=== PATIENT | male | born 1955 | race Caucasian/White ===

== ENCOUNTER 2017-10-03 12:50 | Emergency (ER) | payer BC ==
[2017-10-03 13:12] VITALS: BP 171/78
[2017-10-03] MEDS ORDERED: Sodium Chloride 0.9% 10 ML Syringe FLUSH PRN (13:27)
[2017-10-03] MEDS ORDERED: Ondansetron 4 MG/2 ML SDV IVPUSH ONE ×2 (13:27→15:03)
[2017-10-03] MEDS ORDERED: Morphine 10 MG/ML Syringe IVPUSH ONE (13:30)
[2017-10-03] MEDS ORDERED: Sodium Chloride 0.9% 1,000 ML IV SCH (13:30)
[2017-10-03] MEDS ORDERED: Diatrizoate Meglumine/Diatrizoate Sodium 37% 120 ML Bottle PO ONE (15:34)
[2017-10-03] MEDS ORDERED: Sodium Chloride 0.9% 10 ML Syringe FLUSH ONE (15:34)
[2017-10-03] MEDS ORDERED: Iopamidol 755 Mg/ML 100 ML Bottle IVPUSH ONE (15:34)
--- NOTE | 2017-10-03 15:42 | EDM.PDOC ---
ED HPI GENERAL MEDICAL PROBLEM - General Chief Complaint: Abdominal Pain Stated Complaint: LOWER ABDOMINAL PAIN Time Seen by Provider: 10/03/17 13:04 Source of Information: Reports: Patient, RN Notes Reviewed - History of Present Illness INITIAL COMMENTS - FREE TEXT/NARRATIVE: 61 year old male comes in with RLQ abd pain that started about 3 to 4 hrs ago, has had some nausea and dry heaves, the pain did come first, no radiation to back, he did have some similar discomfort 2 days ago that lasted only for a couple of hours. Hx diverticulitis. No major pain L abd, no fever, chills or diarrhea. No chest pain or difficulty breathing. 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 (see below) Other Treatments MINING TEACHER: none Right Lower Abdomen Pain Score (Numeric/FACES): 9 - Related Data Allergies Allergy/AdvReac Type Severity Reaction Status Date / Time No Known Allergies Allergy Verified 10/27/13 19:22 Home Meds: Home Meds Allopurinol [Zyloprim] 100 mg PO QAM 10/27/13 [History] Aspirin [Halfprin] 81 mg PO DAILY 10/27/13 [History] Fenofibrate Nanocrystallized [Tricor] 145 mg PO DAILY 10/27/13 [History] Levothyroxine [Synthroid] 50 mcg PO QAM 10/27/13 [History] Losartan [Cozaar] 50 mg PO DAILY 10/27/13 [History] Metoprolol Tartrate [Lopressor] 25 mg PO BID 10/27/13 [History] Mometasone Furoate [Nasonex [place]] 2 spray FRANCO QPM 10/27/13 [History] Niacin [Niacin ER] 1,000 mg PO DAILY 10/27/13 [History] [place]-3 Fatty Acids [[place]-3] 2,000 mg PO BID 10/27/13 [History] Omeprazole 20 mg PO BIDAC 10/27/13 [History] Simvastatin [Zocor] 20 mg PO DAILY 10/27/13 [History] L Gasseri/B Bifidum/B Longum [MoralesWiFast Colon Health Capsule] 1 tab PO DAILY 05/13 [History] Ondansetron [Zofran ODT] 4 mg PO Q6H PRN #10 tab.dis 10/03/17 [Rx] Tamsulosin [Tamsulosin 24 Hr] 0.4 mg PO DAILY #7 cap.er 10/03/17 [Rx] oxyCODONE HCl/Acetaminophen [Percocet 5-325 mg Tablet] 1 each PO Q6HR PRN #20 tablet 10/03/17 [Rx] Past Medical History Cardiovascular History: Reports: High Cholesterol, Hypertension Respiratory History: Reports: Other (See Below) Other Respiratory History: c-pap at night Gastrointestinal History: Reports: Diverticulosis, GERD, Hemorrhoids Musculoskeletal History: Reports: Gout Endocrine/Metabolic History: Reports: Hypothyroidism, Other (See Below) Other Endocrine/Metabolic History: pre diabetic - Past Surgical History GI Surgical History: Reports: Colonoscopy, EGD, Hernia, Abdominal, Other (See Below) Other GI Surgeries/Procedures: fatty liver Social & Family History - Tobacco Use Smoking Status *Q: Never Smoker - Caffeine Use Caffeine Use: Reports: Soda Other Caffeine Use: diet pepsi - Recreational Drug Use Recreational Drug Use: No ED ROS GENERAL - Review of Systems Review Of Systems: See Below Constitutional: Denies: Fever, Chills HEENT: Denies: Throat Pain Respiratory: Denies: Shortness of Breath, Wheezing, Pleuritic Chest Pain Cardiovascular: Denies: Chest Pain GI/Abdominal: Reports: Abdominal Pain, Nausea, Vomiting. Denies: Diarrhea, Hematochezia, Melena Musculoskeletal: Reports: No Symptoms. Denies: Back Pain Skin: Reports: No Symptoms Neurological: Reports: No Symptoms ED EXAM, GI/ABD - Physical Exam Exam: See Below General Appearance: Alert, Moderate Distress Throat/Mouth: Normal Inspection, Normal Oropharynx Head: Atraumatic. No: Facial Swelling Neck: Supple, Full Range of Motion Respiratory/Chest: No Respiratory Distress, Lungs Clear, Normal Breath Sounds Cardiovascular: Regular Rate, Rhythm, Bradycardia GI/Abdominal Exam: Soft, Tender (RLQ). No: Guarding, Rebound Back Exam: No: CVA Tenderness (L), CVA Tenderness (R) Extremities: Normal Inspection, Normal Range of Motion. No: Leg Pain Neurological: Alert, No Motor/Sensory Deficits Skin Exam: Warm, Dry, Normal Color Course - Vital Signs Last Recorded V/S: Last Vital Signs Temp 97.8 F 10/03/17 13:10 Pulse 55 L 10/03/17 13:10 Resp 20 10/03/17 13:10 BP 171/78 H 10/03/17 13:10 Pulse Ox 94 L 10/03/17 13:10 - Orders/Labs/Meds Orders: Active Orders 24 hr Category Date Time Status Peripheral IV Care [RC] . DIRECTED Care 10/03/17 13:27 Active Abdomen 2V AP Flat Upright [CR] Stat Exams 10/03/17 13:26 Taken Abdomen Pelvis wo Cont [CT] Stat Exams 10/03/17 15:41 Taken Sodium Chloride 0.9% [Normal Saline] 1,000 ml Med 10/03/17 13:30 Active IV ONETIME Sodium Chloride 0.9% [Normal Saline] 100 ml Med 10/03/17 15:45 Active IV ASDIRECTED Sodium Chloride 0.9% [Saline Flush] Med 10/03/17 13:27 Active 10 ml FLUSH ASDIRECTED PRN Peripheral IV Insertion Adult [OM.PC] Stat Oth 10/03/17 13:27 Ordered Medication Orders Sodium Chloride (Normal Saline) 1,000 mls @ 999 mls/hr IV ONETIME ED Last Admin: 10/03/17 13:37 Dose: 999 mls/hr Sodium Chloride (Normal Saline) 100 mls @ 60 mls/hr IV ASDIRECTED ED Sodium Chloride (Saline Flush) 10 ml FLUSH ASDIRECTED PRN PRN Reason: Keep Vein Open Last Admin: 10/03/17 13:37 Dose: 10 ml Labs: Laboratory Tests 10/03/17 10/03/17 10/03/17 Range/Units 13:25 13:25 13:25 WBC 12.66 H (4.23-9.07) K/mm3 RBC 5.32 (4.63-6.08) M/mm3 Hgb 15.5 (13.7-17.5) gm/L Hct 46.7 (40.1-51.0) % MCV 87.8 (79.0-92.2) fl MCH 29.1 (25.7-32.2) pg MCHC 33.2 (32.2-35.5) g/dl RDW Std Deviation 41.1 (35.1-43.9) fL Plt Count 256 (163-337) K/mm3 MPV 10.0 (9.4-12.3) fl Neut % (Auto) 79.5 H (34.0-67.9) % Lymph % (Auto) 11.4 L (21.8-53.1) % [place] % (Auto) 7.5 (5.3-12.2) % Eos % (Auto) 0.7 L (0.8-7.0) Baso % (Auto) 0.3 (0.1-1.2) % Neut # (Auto) 10.07 H (1.78-5.38) K/mm3 Lymph # (Auto) 1.44 (1.32-3.57) K/mm3 [place] # (Auto) 0.95 H (0.30-0.82) K/mm3 Eos # (Auto) 0.09 (0.04-0.54) K/mm3 Baso # (Auto) 0.04 (0.01-0.08) K/mm3 Sodium 142 (136-145) mEq/L Potassium 4.1 (3.5-5.1) mEq/L Chloride 106 (98-107) mEq/L Carbon Dioxide 30 (21-32) mEq/L Anion Gap 10.1 (5-15) BUN 24 H (7-18) mg/dL Creatinine 1.4 H (0.7-1.3) mg/dL Est Cr Clr Drug Dosing 54.29 mL/min Estimated GFR (MDRD) 52 (>60) mL/min BUN/Creatinine Ratio 17.1 (14-18) Glucose 116 H (74-106) mg/dL Calcium 9.7 (8.5-10.1) mg/dL Total Bilirubin 0.6 (0.2-1.0) mg/dL AST 27 (15-37) U/L ALT 47 (16-63) U/L Alkaline Phosphatase 57 (46-116) U/L C-Reactive Protein < 0.2 (<1.0) mg/dL Total Protein 7.4 (6.4-8.2) g/dl Albumin 3.9 (3.4-5.0) g/dl Globulin 3.5 gm/dL Albumin/Globulin Ratio 1.1 (1-2) Urine Color (Yellow) Urine Appearance (Clear) Urine pH (5.0-8.0) Ur Specific [place] (1.005-1.030) Urine Protein (Negative) Urine Glucose (UA) (Negative) Urine Ketones (Negative) Urine Occult Blood (Negative) Urine Nitrite (Negative) Urine Bilirubin (Negative) Urine Urobilinogen (0.2-1.0) Ur Leukocyte Esterase (Negative) Urine RBC (0-5) /hpf Urine WBC (0-5) /hpf Ur Epithelial Cells (0-5) /hpf Urine Bacteria (FEW) /hpf Urine Mucus (FEW) /hpf 10/03/17 Range/Units 14:55 WBC (4.23-9.07) K/mm3 RBC (4.63-6.08) M/mm3 Hgb (13.7-17.5) gm/L Hct (40.1-51.0) % MCV (79.0-92.2) fl MCH (25.7-32.2) pg MCHC (32.2-35.5) g/dl RDW Std Deviation (35.1-43.9) fL Plt Count (163-337) K/mm3 MPV (9.4-12.3) fl Neut % (Auto) (34.0-67.9) % Lymph % (Auto) (21.8-53.1) % [place] % (Auto) (5.3-12.2) % Eos % (Auto) (0.8-7.0) Baso % (Auto) (0.1-1.2) % Neut # (Auto) (1.78-5.38) K/mm3 Lymph # (Auto) (1.32-3.57) K/mm3 [place] # (Auto) (0.30-0.82) K/mm3 Eos # (Auto) (0.04-0.54) K/mm3 Baso # (Auto) (0.01-0.08) K/mm3 Sodium (136-145) mEq/L Potassium (3.5-5.1) mEq/L Chloride (98-107) mEq/L Carbon Dioxide (21-32) mEq/L Anion Gap (5-15) BUN (7-18) mg/dL Creatinine (0.7-1.3) mg/dL Est Cr Clr Drug Dosing mL/min Estimated GFR (MDRD) (>60) mL/min BUN/Creatinine Ratio (14-18) Glucose (74-106) mg/dL Calcium (8.5-10.1) mg/dL Total Bilirubin (0.2-1.0) mg/dL AST (15-37) U/L ALT (16-63) U/L Alkaline Phosphatase (46-116) U/L C-Reactive Protein (<1.0) mg/dL Total Protein (6.4-8.2) g/dl Albumin (3.4-5.0) g/dl Globulin gm/dL Albumin/Globulin Ratio (1-2) Urine Color Dark yellow (Yellow) Urine Appearance Slt cloudy H (Clear) Urine pH 6.5 (5.0-8.0) Ur Specific [place] 1.020 (1.005-1.030) Urine Protein Trace H (Negative) Urine Glucose (UA) Negative (Negative) Urine Ketones Negative (Negative) Urine Occult Blood 3+ H (Negative) Urine Nitrite Negative (Negative) Urine Bilirubin Negative (Negative) Urine Urobilinogen 0.2 (0.2-1.0) Ur Leukocyte Esterase Negative (Negative) Urine RBC 50-75 H (0-5) /hpf Urine WBC 0-5 (0-5) /hpf Ur Epithelial Cells 0-5 (0-5) /hpf Urine Bacteria Few (FEW) /hpf Urine Mucus Few (FEW) /hpf Meds: Medications Generic Name Dose Route Start Last Admin Trade Name Freq PRN Reason Stop Dose Admin Sodium Chloride 1,000 mls @ 999 mls/hr 10/03/17 13:30 10/03/17 13:37 Normal Saline IV 999 mls/hr ONETIME ED Administration Sodium Chloride 100 mls @ 60 mls/hr 10/03/17 15:45 Normal Saline IV ASDIRECTED ED Sodium Chloride 10 ml 10/03/17 13:27 10/03/17 13:37 Saline Flush FLUSH 10 ml ASDIRECTED PRN Administration Keep Vein Open Discontinued Medications Generic Name Dose Route Start Last Admin Trade Name Freq PRN Reason Stop Dose Admin Diatrizoate Meglum/Diatrizoate Sod 90 ml 10/03/17 15:34 Gastrografin 37% PO 10/03/17 15:35 ONETIME ONE Iopamidol 100 ml 10/03/17 15:34 Isovue-370 (76%) IVPUSH 10/03/17 15:35 ONETIME ONE Morphine Sulfate 10 mg 10/03/17 13:30 10/03/17 13:37 Morphine IVPUSH 10/03/17 13:31 10 mg ONETIME ONE Administration Morphine Sulfate 4 mg 10/03/17 16:40 10/03/17 16:45 Morphine IVPUSH 10/03/17 16:41 4 mg ONETIME ONE Administration Ondansetron HCl 4 mg 10/03/17 13:27 10/03/17 13:37 Zofran IVPUSH 10/03/17 13:28 4 mg ONETIME ONE Administration Ondansetron HCl 4 mg 10/03/17 15:03 10/03/17 15:07 Zofran IVPUSH 10/03/17 15:04 4 mg ONETIME ONE Administration Sodium Chloride 10 ml 10/03/17 15:34 Saline Flush FLUSH 10/03/17 15:35 ONETIME ONE Tamsulosin HCl 0.4 mg 10/03/17 17:22 Flomax PO 10/03/17 17:23 ONETIME ONE - Re-Assessments/Exams Free Text/Narrative Re-Assessment/Exam: 10/03/17 17:27. he has a 4 mm stone distal R ureter, feeling much better after 3 doses of morphine. Departure - Departure Time of Disposition: 17:21 Disposition: Home, Self-Care 01 Condition: Fair Clinical Impression: Kidney stone on right side - Discharge Information Prescriptions: oxyCODONE HCl/Acetaminophen [Percocet 5-325 mg Tablet] 1 each PO Q6HR PRN #20 tablet PRN Reason: Pain Ondansetron [Zofran ODT] 4 mg PO Q6H PRN #10 tab.dis PRN Reason: Nausea/Vomiting Tamsulosin [Tamsulosin 24 Hr] 0.4 mg PO DAILY #7 cap.er Referrals: Jesus Saini MD [Primary Care Provider] - Forms: ED Department Discharge Additional Instructions: strain urine to watch for stone, flomax 0.4 mg daily, tylenol for mild to moderate discomfort or percocet if needed for severe pain, do not drive, work or operate equipment when taking percocet, zofran if needed for nausea or vomiting. If you have not passed the stone within [address] Wheeler or one of the other clinic providers, return to ED as needed. - My Orders Last 24 Hours: My Active Orders 10/03/17 13:26 Abdomen 2V AP Flat Upright [CR] Stat 10/03/17 13:27 Peripheral IV Care [RC] . DIRECTED Sodium Chloride 0.9% [Saline Flush] 10 ml FLUSH ASDIRECTED PRN Peripheral IV Insertion Adult [OM.PC] Stat 10/03/17 13:30 Sodium Chloride 0.9% [Normal Saline] 1,000 ml IV ONETIME 10/03/17 15:41 Abdomen Pelvis wo Cont [CT] Stat 10/03/17 15:45 Sodium Chloride 0.9% [Normal Saline] 100 ml IV ASDIRECTED - Assessment/Plan Last 24 Hours: My Active Orders 10/03/17 13:26 Abdomen 2V AP Flat Upright [CR] Stat 10/03/17 13:27 Peripheral IV Care [RC] . DIRECTED Sodium Chloride 0.9% [Saline Flush] 10 ml FLUSH ASDIRECTED PRN Peripheral IV Insertion Adult [OM.PC] Stat 10/03/17 13:30 Sodium Chloride 0.9% [Normal Saline] 1,000 ml IV ONETIME 10/03/17 15:41 Abdomen Pelvis wo Cont [CT] Stat 10/03/17 15:45 Sodium Chloride 0.9% [Normal Saline] 100 ml IV ASDIRECTED
[2017-10-03] MEDS ORDERED: Sodium Chloride 0.9% 100 ML IV SCH (15:45)
[2017-10-03] MEDS ORDERED: Morphine 4 MG/ML Syringe IVPUSH ONE (16:40)
[2017-10-03] MEDS ORDERED: Tamsulosin 0.4 MG Cap.ER PO ONE (17:22)
--- NOTE | 2017-10-05 07:59 | CT ---
CT abdomen and pelvis Technique: Multiple axial sections were obtained from above the dome of the diaphragm inferiorly through the pubic symphysis. Intravenous and oral contrast not utilized. Study has been performed as a ureteral stone protocol. Comparison: Prior abdominal x-ray performed earlier on the same day as well as previous CT abdomen and pelvis exam of 08/01/12. Findings: Right kidney shows hydronephrosis. Inflammatory change is noted around the right kidney as well as right ureter. Findings are caused by an obstructing stone within the distal right ureter measuring approximately 6-7 mm. This ureteral stone is located approximately 2-3 cm from the UVJ. No additional ureteral calculi are seen. No renal calculi are identified. Three cysts are seen within the left kidney. Largest cyst measures 6.1 cm in size and has increased in size from previous study which measured approximately 4.0 cm on previous exam. Second cyst measures 2.2 cm which is also increased in size from prior study at which time it measured 1.1 cm. Third cyst seen is more inferiorly within the right kidney measuring 1.9 cm in size which has also increased slightly from prior exam. Diffuse fatty infiltration seen within the liver. Visualized lung bases show slight fibrosis. Spleen appears within normal limits. Adrenal glands show no nodule. Pancreas is within normal limits. Gallbladder contains no calcified gallstones. Aorta shows mild atherosclerotic change without aneurysmal dilatation. No retroperitoneal adenopathy is seen. Numerous diverticuli are seen throughout the colon. No inflammatory change of diverticulitis is seen. Prostate gland is mildly enlarged and contains calcifications. No free fluid is seen. Appendix felt to be seen and is normal in size. Bone window settings were reviewed which show scattered degenerative change within the spine with disc space narrowing, endplate osteophytes as well as vacuum phenomena within the L3-L4 and L4-L5 discs. Impression: 1. Distal right ureteral stone measuring approximately 6-7 mm in size. 2. Other nonacute findings as described above. Diagnostic code #3
--- NOTE | 2017-10-05 07:59 | CR ---
Abdomen: Supine and upright views of the abdomen were obtained. Comparison: Prior abdominal x-ray of 08/01/12. Calcifications are seen within the left side of the pelvis which are felt compatible with phleboliths. Mild degenerative change is scattered within the spine. Bowel gas pattern is unremarkable. No soft tissue abnormality is appreciated. No free air is seen. Impression: 1. Incidental findings. Diagnostic code #2
== END 2017-10-03 17:45 | disposition home or self-care (01) ==
LOC: JD.ED 12:50
DX: N13.2 Hydronephrosis with renal and ureteral calculous obstruction (principal); I10 Essential (primary) hypertension; E78.00 Pure hypercholesterolemia, unspecified; K21.9 Gastro-esophageal reflux disease without esophagitis; E03.9 Hypothyroidism, unspecified; Z79.899 Other long term (current) drug therapy; Z79.82 Long term (current) use of aspirin
CPT/HCPCS: 36415; 74019; 74176; 80053; 81001; 85025; 86140; 96361; 96374; 96375; 96376; 99285; A9270; J2270; J2405; J7040; J7050; Q9963; 99284

== ENCOUNTER 2018-11-05 14:47 | Emergency (ER) | payer BC ==
[2018-11-05 15:06] VITALS: BP 140/72
--- NOTE | 2018-11-05 15:44 | EDM.PDOC ---
ED HPI GENERAL MEDICAL PROBLEM - General Chief Complaint: Genitourinary Problem Stated Complaint: DIFFICULTY URINATING Time Seen by Provider: 11/05/18 15:22 Source of Information: Reports: Patient, Family (Daughter), RN Notes Reviewed History Limitations: Reports: No Limitations - History of Present Illness INITIAL COMMENTS - FREE TEXT/NARRATIVE: The patient states that he underwent excision of a right spermatocele at [facility] yesterday, , 11/04/2018. He states that he underwent general anesthesia for about one hour. He was discharged home the same day. He states that he has had a small but anticipated amount of bleeding to the scrotal incision, but now presents to the ED stating that he is having difficulty urinating. The patient has a history of BPH, but states that he stopped taking his tamsulosin about one month ago, because he did not think that it was doing much. A bladder scan was performed here in the ED, finding 575 mL of urine. No prior history of urinary retention. The patient's PCP is Dr. Saini. His Urologist is Dr. Herndon. Scrotum Pain Score (Numeric/FACES): 5 - Related Data Allergies Allergy/AdvReac Type Severity Reaction Status Date / Time No Known Allergies Allergy Verified 11/05/18 15:06 Home Meds: Home Meds Allopurinol [Zyloprim] 100 mg PO DAILY 11/05/18 [History] Ciprofloxacin [Ciprofloxacin HCl] 250 mg PO BID 11/05/18 [History] Codeine/Promethazine [Phenergan with Codeine] 5 ml PO Q4H PRN 11/05/18 [History] Fenofibrate Nanocrystallized [Fenofibrate] 145 mg PO DAILY 11/05/18 [History] Flaxseed Oil 1,000 mg PO DAILY 11/05/18 [History] Hydrocodone/Acetaminophen [Hydrocodon-Acetaminophen 5-325] 1 - 2 tab PO Q4H PRN 11/05/18 [History] Levothyroxine [Synthroid] 25 mcg PO DAILY 11/05/18 [History] Losartan [Cozaar] 50 mg PO DAILY 11/05/18 [History] Metoprolol Tartrate [Lopressor] 25 mg PO BID 11/05/18 [History] Mometasone Furoate [Nasonex [place]] 2 spray FRANCO DAILY 11/05/18 [History] Montelukast [Singulair] 10 mg PO BEDTIME 11/05/18 [History] Niacin [Niacin ER] 500 mg PO BID 11/05/18 [History] [place]-3/DHA/Epa/Fish Oil [[place] 3 500 Softgel] 1,000 mg PO DAILY 11/05/18 [ History] Omeprazole 20 mg PO BID 11/05/18 [History] Sildenafil Citrate [Sildenafil] 100 mg PO ASDIRECTED PRN 11/05/18 [History] Tamsulosin [Flomax] 0.4 mg PO DAILY 11/05/18 [History] atorvaSTATin [Lipitor] 20 mg PO DAILY 11/05/18 [History] metFORMIN [Glucophage XR] 500 mg PO BIDMEALS 11/05/18 [History] Past Medical History HEENT History: Reports: Impaired Vision Cardiovascular History: Reports: High Cholesterol, Hypertension Respiratory History: Reports: Sleep Apnea (nightly CPAP 12) Gastrointestinal History: Reports: Diverticulosis (diverticulitis), GERD, Hemorrhoids, Other (See Below) (Hepatic steatosis) Genitourinary History: Reports: BPH (untreated), Renal Calculus Musculoskeletal History: Reports: Gout Endocrine/Metabolic History: Reports: Hypothyroidism, Obesity/BMI 30+, Other ( See Below) (Prediabetes) - Past Surgical History GI Surgical History: Reports: Colonoscopy (x 3), EGD (x 3), Hernia, Abdominal ( Paraumbilical, 1975) Male Surgical History: Reports: Other (See Below) (Right spermatocele excision 11/04/2018) Dermatological Surgical History: Reports: Other (See Below) (Lipoma excised from under arm) Social & Family History - Tobacco Use Smoking Status *Q: Never Smoker - Caffeine Use Caffeine Use: Reports: Soda Other Caffeine Use: diet pepsi - Alcohol Use Alcohol Use History: Yes Alcohol Use Frequency: Rarely - Recreational Drug Use Recreational Drug Use: No - Living Situation & Occupation Living situation: Reports: , Alone Occupation: Retired ED ROS GENERAL - Review of Systems Review Of Systems: ROS reveals no pertinent complaints other than HPI. ED EXAM, RENAL/ - Physical Exam Exam: See Below Exam Limited By: No Limitations General Appearance: Alert, WD/WN, No Apparent Distress Eye Exam: Bilateral Eye: EOMI, Normal Inspection Ears: Normal External Exam, Hearing Grossly Normal Nose: Normal Inspection Throat/Mouth: Normal Inspection, Normal Lips, Normal Voice, No Airway Compromise Head: Atraumatic, Normocephalic Neck: Normal Inspection, Full Range of Motion Respiratory/Chest: No Respiratory Distress, Lungs Clear, Normal Breath Sounds, No Accessory Muscle Use Cardiovascular: Normal Peripheral Pulses, Regular Rate, Rhythm, No Gallop, No JVD, No Murmur, No Rub GI/Abdominal: Normal Bowel Sounds, Soft, No Organomegaly, No Distention, No Abnormal Bruit, No Mass, Tender (Mild, suprapubic only. Nontender elsewhere.), Other (Obese) (Male) Exam: Deferred Rectal (Males) Exam: Deferred Back Exam: Normal Inspection, Full Range of Motion, NT Extremities: Normal Inspection, Normal Range of Motion, No Pedal Edema, Normal Capillary Refill Neurological: Alert, Oriented, Normal Cognition, No Motor/Sensory Deficits Psychiatric: Normal Affect Skin Exam: Warm, Dry, Intact, Normal Color, No Rash Course - Vital Signs Last Recorded V/S: Last Vital Signs Temp 37.1 C 11/05/18 14:57 Pulse 60 11/05/18 14:57 Resp 13 11/05/18 14:57 BP 140/72 11/05/18 14:57 Pulse Ox 95 11/05/18 14:57 - Orders/Labs/Meds Orders: Active Orders 24 hr Category Date Time Status Bladder Scan [RC] ASDIRECTED Care 11/05/18 15:32 Ordered - Re-Assessments/Exams Free Text/Narrative Re-Assessment/Exam: 11/05/18 15:40 A bladder scan after the patient arrived to the ED found 575 mL of urine, however, this was not a post-void residual, as the patient states that he last urinated around 14:00 this afternoon. I have asked the patient to urinate as much as he can, after which we will check a post-void residual. 11/05/18 16:01 Post-void residual was [address] to [address] a catheter to a leg bag, however, the patient had been told by Dr. Herndon's office that he would not need one unless his residual was 300 mL or greater. The patient therefore declined a catheter. I will discharge him home with the recommendation that he restart his tamsulosin immediately, and return to the ED if he has any problems over the weekend. The patient will then follow-up with Dr. Herndon on Thursday, . Departure - Departure Time of Disposition: 16:06 Disposition: Home, Self-Care 01 Condition: Good Clinical Impression: Postoperative urinary retention, BPH (benign prostatic hyperplasia) - Discharge Information *PRESCRIPTION DRUG MONITORING PROGRAM REVIEWED*: Not Applicable *COPY OF PRESCRIPTION DRUG MONITORING REPORT IN PATIENT NICKY: Not Applicable Referrals: Jesus Saini MD [Primary Care Provider] - Cecy Herndon MD [Consulting Physician] - Forms: ED Department Discharge Additional Instructions: You were seen in the emergency room after having difficulty urinating, following spermatocele surgery yesterday. Your post-void residual was found to be 280 mL. Catheterization with a leg bag was offered, but declined. We recommend that you restart your tamsulosin (Flomax) as soon as possible. If you have any difficulty urinating over the weekend, please do not hesitate to return to the ER. Otherwise, please follow-up with your Urologist, Dr. Herndon, 11/08/2018. - My Orders Last 24 Hours: My Active Orders 11/05/18 15:32 Bladder Scan [RC] ASDIRECTED - Assessment/Plan Last 24 Hours: My Active Orders 11/05/18 15:32 Bladder Scan [RC] ASDIRECTED
== END 2018-11-05 16:20 | disposition home or self-care (01) ==
LOC: JD.ED 14:47
DX: N40.1 Benign prostatic hyperplasia with lower urinary tract symptoms (principal); R33.8 Other retention of urine; E66.9 Obesity, unspecified; I10 Essential (primary) hypertension; Z79.899 Other long term (current) drug therapy; Z98.890 Other specified postprocedural states
CPT/HCPCS: 51798; 99282; 99283

== ENCOUNTER 2020-02-22 20:00 | Emergency (ER) | payer BC ==
--- NOTE | 2020-02-22 20:21 | EDM.PDOC ---
ED HPI GENERAL MEDICAL PROBLEM - General Chief Complaint: Respiratory Problem Stated Complaint: HIGH FEVER/COUGH/SHIVERING Time Seen by Provider: 02/22/20 20:20 Source of Information: Reports: Patient History Limitations: Reports: No Limitations - History of Present Illness INITIAL COMMENTS - FREE TEXT/NARRATIVE: 64-year-old male presents to the ED for evaluation of acute onset of high fever with Rigor's and chills about 1600 hrs. today. He did not feel real well yesterday with the onset of diffuse low back pain and was seen by his primary care provider and had x-rays of his lower back which revealed degenerative arthritic change. Currently having diffuse low back pain radiating to both upper buttocks but not down past the mid thigh posteriorly. Started on a course of prednisone which she started this morning and was referred to physio-which he is to start next Thursday. Did not feel real well this morning and slept until about noon. He had a sausage tony about noon at home. Subsequently he did have a strawberry Thursday from the [employer] about 1500 hrs. today. Developed fever and chills about 1600 hrs. today with his teeth almost chattering. States he went out and sat on the hot sun for a while until he can warm up. When he presented to the ED tonight his temperature is 103.6. He reports he did have a COVID test done in the clinic yesterday and it was sent off and he did not receive results yet. Reports he was out in [place] last week with many other people with no mask wearing. No sore throat or runny nose. [place] any genitourinary complaints. He did have 1 bout of diarrhea stool this morning yellow in color without blood. Patient has not taken anything for fever tonight. He admits that he does feel short of breath on exertion. O2 sats are 90 to 92% on room air in the ED. Onset: Today, Sudden Onset Date: 02/22/20 Onset Time: 16:00 (New onset of severe Rigors and chills. ) Duration: Hour(s):, Constant Location: Reports: Chest (Mild shortness of breath. Hypoxia on examination. Dry cough without any sputum production.), Back (Diffuse low back pain for the last 3 days.) Quality: Reports: Other (New onset of fever and chills about 1600 hrs. today.) Severity: Moderate Improves with: Reports: None Worsens with: Reports: None, Other (Back pain worsened by walking.) Context: Denies: Activity, Exercise, Lifting, Sick Contact, Trauma Associated Symptoms: Reports: Cough, Diaphoresis, Fever/Chills, Loss of Appetite, Malaise, Shortness of Breath, Weakness. Denies: No Other Symptoms, Confusion (Productive.), Chest Pain, Headaches (Temperatures 39.1 at the time is seen in the ED.), Nausea/Vomiting, Rash, Seizure, Syncope Treatments [employer]ER [employer]: Reports: Other (see below) (None.) - Related Data Allergies Allergy/AdvReac Type Severity Reaction Status Date / Time No Known Allergies Allergy Verified 02/22/20 20:11 Home Meds: Home Meds Fenofibrate Nanocrystallized [Fenofibrate] 145 mg PO DAILY 11/05/18 [History] Flaxseed Oil 1,000 mg PO DAILY 11/05/18 [History] Levothyroxine [Synthroid] 25 mcg PO DAILY 11/05/18 [History] Losartan [Cozaar] 50 mg PO DAILY 11/05/18 [History] Metoprolol Tartrate [Lopressor] 25 mg PO BID 11/05/18 [History] Mometasone Furoate [Nasonex [place]] 2 spray FRANCO DAILY 11/05/18 [History] Montelukast [Singulair] 10 mg PO BEDTIME 11/05/18 [History] Niacin [Niacin ER] 500 mg PO BID 11/05/18 [History] [place]-3/DHA/Epa/Fish Oil [[place] 3 500 Softgel] 1,000 mg PO BID 11/05/18 [History] Omeprazole 20 mg PO BID 11/05/18 [History] Tamsulosin [Flomax] 0.4 mg PO DAILY 11/05/18 [History] allopurinoL [Zyloprim] 100 mg PO DAILY 11/05/18 [History] atorvaSTATin [Lipitor] 20 mg PO DAILY 11/05/18 [History] metFORMIN [Glucophage XR] 500 mg PO BIDMEALS 11/05/18 [History] Aspirin 81 mg PO DAILY 02/22/20 [History] SlideMail 1 tab PO DAILY 02/22/20 [History] predniSONE [Prednisone] 40 mg PO DAILY 02/22/20 [History] Past Medical History HEENT History: Reports: Impaired Vision Cardiovascular History: Reports: High Cholesterol, Hypertension Respiratory History: Reports: Sleep Apnea Other Respiratory History: c-pap at night Gastrointestinal History: Reports: Diverticulosis, GERD, Hemorrhoids, Other (See Below) Genitourinary History: Reports: BPH, Renal Calculus Musculoskeletal History: Reports: Gout Endocrine/Metabolic History: Reports: Hypothyroidism, Obesity/BMI 30+ Other Endocrine/Metabolic History: pre diabetic - Past Surgical History GI Surgical History: Reports: Colonoscopy, EGD, Hernia, Abdominal, Polypectomy Social & Family History - Caffeine Use Caffeine Use: Reports: Soda Other Caffeine Use: diet pepsi - Living Situation & Occupation Living situation: Reports: , Alone Occupation: Retired ED ROS GENERAL - Review of Systems Review Of Systems: See Below Constitutional: Reports: Fever, Chills (Darting about 1600 hrs. today.), Malaise, Weakness, Fatigue, Diaphoresis, Decreased Appetite. Denies: Weight Loss HEENT: Reports: Glasses Respiratory: Reports: Shortness of Breath, Cough. Denies: Wheezing, Pleuritic Chest Pain, Sputum, Hemoptysis Cardiovascular: Reports: Blood Pressure Problem, Dyspnea on Exertion. Denies: Chest Pain, Claudication, Edema, Lightheadedness, Orthopnea, Palpitations (The last 2 days.) Endocrine: Reports: Fatigue GI/Abdominal: Reports: Diarrhea. Denies: Abdominal Pain, Hematemesis (Loose diarrhea stool this morning watery yellow no blood), Hematochezia, Nausea, Stool Incontinence, Vomiting : Reports: Frequency, Other (. Usually x2. Known BPH.) Musculoskeletal: Reports: Back Pain (For his low back pain radiating to both upper buttocks x3 days. X-rays of his back done back in the clinic by his private care physician yesterday's apparently revealed diffuse degenerative arthritic changes. He was started on prednisone which he did take this morning. Johnny for physical therapy next Thursday.) Skin: Reports: No Symptoms Neurological: Reports: Difficulty Walking, Weakness. Denies: Confusion, Dizziness, Headache, Numbness, Syncope, Tingling, Trouble Speaking, Change in Speech (Due to weakness.), Gait Disturbance Psychiatric: Reports: No Symptoms Hematologic/Lymphatic: Reports: No Symptoms Immunologic: Reports: No Symptoms ED EXAM, GENERAL - Physical Exam Exam: See Below Exam Limited By: No Limitations General Appearance: Alert, WD/WN, Mild Distress, Other (Patient is very warm to palpation. Temperatures recorded at 39.1. Heart rate 106 and sinus respiratory 20 and sinus sats 90 to 92% room air. BP 150/84.) Eye Exam: Bilateral Eye: Normal Inspection (No blepharal pallor or scleral icterus.), PERRL Ears: Normal TMs Nose: Normal Inspection Throat/Mouth: Normal Lips, Normal Oropharynx, Other Head: Atraumatic, Normocephalic. No: Facial Swelling, Facial Tenderness Neck: Normal Inspection, Supple, Limited Range of Motion (He has loss of 5 degrees lateral flexion and rotation), Tender Lateral (Tenderness bilateral cervical spine.). No: Full Range of Motion, Carotid Bruit, Lymphadenopathy (L) ( and 5 degrees extension.), Lymphadenopathy (R), Thyromegaly Respiratory/Chest: Lungs Clear, Normal Breath Sounds, No Accessory Muscle Use, Chest Non-Tender, Respiratory Distress (Tachypnea at rest.) Cardiovascular: Normal Peripheral Pulses, No Edema, No Gallop (Mild sinus tachycardia 106/min), No Murmur, No Rub, Tachycardia Peripheral Pulses: 2+: Posterior Tibial (L), Posterior Tibial (R), Dorsalis Pedis (L), Dorsalis Pedis (R), 3+: Carotid (L), Carotid (R) GI/Abdominal: Normal Bowel Sounds, Soft, Non-Tender, No Organomegaly, No Abnormal Bruit, No Mass, Pelvis Stable, Other (Moderately obese. Umbilical hernia which is protruding but easily reducible and nontender to the patient. Midline laparotomy scar from previous ventral hernia repair and mesh graft placement. He has had previous laparoscopic cholecystectomy. Abdomen is quite obese. Firm palpation with no organomegaly noted.) Back Exam: Decreased Range of Motion, Vertebral Tenderness (Tenderness along both sides of the lumbar spine lumbar 1 to lumbar 5 bilaterally.) Extremities: Normal Inspection ( Pain particular about over L5-S1 facet joints bilaterally.), No Pedal Edema, Other Neurological: Alert (No signs of mild arthritic change both knees and limited external rotation both hips to suggest arthritis strains as well.), Oriented, CN II-XII Intact, Normal Cognition Psychiatric: Normal Affect, Normal Mood Skin Exam: Warm, Dry, Intact, Normal Color, No Rash, Other (She has erythematous face and is very warm palpation.) Course - Vital Signs Last Recorded V/S: Last Vital Signs Temp 39.1 C H 02/22/20 20:57 Pulse 102 H 02/22/20 20:12 Resp 19 02/22/20 20:12 BP 150/84 H 02/22/20 20:12 Pulse Ox 90 L 02/22/20 20:12 - Orders/Labs/Meds Orders: Active Orders 24 hr Category Date Time Status Blood Glucose Check, Bedside [RC] ONETIME Care 02/22/20 20:35 Active EKG Documentation Completion [RC] STAT Care 02/22/20 20:52 Active Oxygen Therapy [RC] ASDIRECTED Care 02/22/20 20:35 Active Chest 2V [CR] Stat Exams 02/22/20 20:34 Taken CULTURE BLOOD [BC] Stat Lab 02/22/20 21:08 Received CULTURE BLOOD [BC] Stat Lab 02/22/20 21:18 Received Sodium Chloride 0.9% [Normal Saline] 1,000 ml Med 02/22/20 20:45 Active IV ASDIRECTED cefTRIAXone [Rocephin] 2 gm Med 02/22/20 22:00 Active Sodium Chloride 0.9% [Normal Saline] 100 ml IV Q24H Blood Culture x2 Reflex Set [OM.PC] Stat Oth 02/22/20 20:36 Ordered Medication Orders Sodium Chloride (Normal Saline) 1,000 mls @ 150 mls/hr IV ASDIRECTED ED Last Admin: 02/22/20 20:56 Dose: 150 mls/hr Documented by: FRANK Ceftriaxone Sodium 2 gm/ (Sodium Chloride) 100 mls @ 200 mls/hr IV Q24H [facility] Last Admin: 02/22/20 22:13 Dose: 200 mls/hr Documented by: RANDY Labs: Laboratory Tests 02/22/20 02/22/20 02/22/20 Range/Units 20:50 20:55 20:55 WBC 12.21 H (4.23-9.07) K/mm3 RBC 5.52 (4.63-6.08) M/mm3 Hgb 16.3 (13.7-17.5) gm/dl Hct 49.3 (40.1-51.0) % MCV 89.3 (79.0-92.2) fl MCH 29.5 (25.7-32.2) pg MCHC 33.1 (32.2-35.5) g/dl RDW Std Deviation 44.4 H (35.1-43.9) fL Plt Count 225 (163-337) K/mm3 MPV 10.4 (9.4-12.3) fl Neutrophils % (Manual) 79 H (40-60) % Band Neutrophils % 0 (0-10) % Lymphocytes % (Manual) 13 L (20-40) % Atypical Lymphs % 4 % Monocytes % (Manual) 4 (2-10) % Eosinophils % (Manual) 0 L (0.8-7.0) % Basophils % (Manual) 0 L (0.2-1.2) Platelet Estimate Adequate RBC Morph Comment Normal ESR (0-15) mm/hr PT 10.9 (9.7-12.0) SECONDS INR 1.00 APTT 27 (22-31) SECONDS D-Dimer, Quantitative 0.41 (0.19-0.50) mg/L ABG pH (7.35-7.45) ABG pCO2 (35.0-45.0) mmHg ABG pO2 (80.0-100.0) mmHg ABG HCO3 (22.0-26.0) meq/L ABG O2 Saturation (96.0-97.0) % ABG Base Excess (-2-2.0) Law Test FiO2 (21.00-100.00) % Sodium (136-145) mEq/L Potassium (3.5-5.1) mEq/L Chloride (98-107) mEq/L Carbon Dioxide (21-32) mEq/L Anion Gap (5-15) BUN (7-18) mg/dL Creatinine (0.7-1.3) mg/dL Est Cr Clr Drug Dosing mL/min Estimated GFR (MDRD) (>60) mL/min BUN/Creatinine Ratio (14-18) Glucose (80-115) mg/dL POC Glucose (80-115) mg/dL Lactic Acid (0.4-2.0) mmol/L Calcium (8.5-10.1) mg/dL Magnesium (1.8-2.4) mg/dl Ferritin (26-388) ng/ml Total Bilirubin (0.2-1.0) mg/dL AST (15-37) U/L ALT (16-63) U/L Alkaline Phosphatase (46-116) U/L Lactate Dehydrogenase (85-227) U/L Troponin I (0.00-0.056) ng/mL C-Reactive Protein (<1.0) mg/dL NT-Pro-B Natriuret Pep (0-125) pg/mL Total Protein (6.4-8.2) g/dl Albumin (3.4-5.0) g/dl Globulin gm/dL Albumin/Globulin Ratio (1-2) Urine Color Yellow (Yellow) Urine Appearance Clear (Clear) Urine pH 6.0 (5.0-8.0) Ur Specific [place] 1.025 (1.005-1.030) Urine Protein Negative (Negative) Urine Glucose (UA) Negative (Negative) Urine Ketones Negative (Negative) Urine Occult Blood Trace-intact H (Negative) Urine Nitrite Negative (Negative) Urine Bilirubin Negative (Negative) Urine Urobilinogen 0.2 (0.2-1.0) Ur Leukocyte Esterase Negative (Negative) Urine RBC 0-5 (0-5) /hpf Urine WBC 0-5 (0-5) /hpf Ur Squamous Epith Cells 0-5 (0-5) /hpf Urine Bacteria Occasional (FEW) /hpf Urine Mucus Few (FEW) /hpf Ketones (0.0-0.3) mM SARS Virus RNA (PCR) (NEGATIVE) 02/22/20 02/22/20 02/22/20 Range/Units 20:55 20:55 20:55 WBC (4.23-9.07) K/mm3 RBC (4.63-6.08) M/mm3 Hgb (13.7-17.5) gm/dl Hct (40.1-51.0) % MCV (79.0-92.2) fl MCH (25.7-32.2) pg MCHC (32.2-35.5) g/dl RDW Std Deviation (35.1-43.9) fL Plt Count (163-337) K/mm3 MPV (9.4-12.3) fl Neutrophils % (Manual) (40-60) % Band Neutrophils % (0-10) % Lymphocytes % (Manual) (20-40) % Atypical Lymphs % % Monocytes % (Manual) (2-10) % Eosinophils % (Manual) (0.8-7.0) % Basophils % (Manual) (0.2-1.2) Platelet Estimate RBC Morph Comment ESR (0-15) mm/hr PT (9.7-12.0) SECONDS INR APTT (22-31) SECONDS D-Dimer, Quantitative (0.19-0.50) mg/L ABG pH (7.35-7.45) ABG pCO2 (35.0-45.0) mmHg ABG pO2 (80.0-100.0) mmHg ABG HCO3 (22.0-26.0) meq/L ABG O2 Saturation (96.0-97.0) % ABG Base Excess (-2-2.0) Law Test FiO2 (21.00-100.00) % Sodium 133 L (136-145) mEq/L Potassium 4.0 (3.5-5.1) mEq/L Chloride 97 L (98-107) mEq/L Carbon Dioxide 25 (21-32) mEq/L Anion Gap 15.0 (5-15) BUN 21 H (7-18) mg/dL Creatinine 1.4 H (0.7-1.3) mg/dL Est Cr Clr Drug Dosing 52.25 mL/min Estimated GFR (MDRD) 51 (>60) mL/min BUN/Creatinine Ratio 15.0 (14-18) Glucose 127 H (80-115) mg/dL POC Glucose (80-115) mg/dL Lactic Acid 1.6 (0.4-2.0) mmol/L Calcium 9.8 (8.5-10.1) mg/dL Magnesium 1.5 L (1.8-2.4) mg/dl Ferritin 653 H (26-388) ng/ml Total Bilirubin 0.8 (0.2-1.0) mg/dL AST 26 (15-37) U/L ALT 65 H (16-63) U/L Alkaline Phosphatase 64 (46-116) U/L Lactate Dehydrogenase 108 (85-227) U/L Troponin I < 0.017 (0.00-0.056) ng/mL C-Reactive Protein 5.9 H* (<1.0) mg/dL NT-Pro-B Natriuret Pep (0-125) pg/mL Total Protein 7.8 (6.4-8.2) g/dl Albumin 3.6 (3.4-5.0) g/dl Globulin 4.2 gm/dL Albumin/Globulin Ratio 0.9 L (1-2) Urine Color (Yellow) Urine Appearance (Clear) Urine pH (5.0-8.0) Ur Specific [place] (1.005-1.030) Urine Protein (Negative) Urine Glucose (UA) (Negative) Urine Ketones (Negative) Urine Occult Blood (Negative) Urine Nitrite (Negative) Urine Bilirubin (Negative) Urine Urobilinogen (0.2-1.0) Ur Leukocyte Esterase (Negative) Urine RBC (0-5) /hpf Urine WBC (0-5) /hpf Ur Squamous Epith Cells (0-5) /hpf Urine Bacteria (FEW) /hpf Urine Mucus (FEW) /hpf Ketones (0.0-0.3) mM SARS Virus RNA (PCR) (NEGATIVE) 02/22/20 02/22/20 02/22/20 Range/Units 20:55 20:55 20:55 WBC (4.23-9.07) K/mm3 RBC (4.63-6.08) M/mm3 Hgb (13.7-17.5) gm/dl Hct (40.1-51.0) % MCV (79.0-92.2) fl MCH (25.7-32.2) pg MCHC (32.2-35.5) g/dl RDW Std Deviation (35.1-43.9) fL Plt Count (163-337) K/mm3 MPV (9.4-12.3) fl Neutrophils % (Manual) (40-60) % Band Neutrophils % (0-10) % Lymphocytes % (Manual) (20-40) % Atypical Lymphs % % Monocytes % (Manual) (2-10) % Eosinophils % (Manual) (0.8-7.0) % Basophils % (Manual) (0.2-1.2) Platelet Estimate RBC Morph Comment ESR 19 H (0-15) mm/hr PT (9.7-12.0) SECONDS INR APTT (22-31) SECONDS D-Dimer, Quantitative (0.19-0.50) mg/L ABG pH (7.35-7.45) ABG pCO2 (35.0-45.0) mmHg ABG pO2 (80.0-100.0) mmHg ABG HCO3 (22.0-26.0) meq/L ABG O2 Saturation (96.0-97.0) % ABG Base Excess (-2-2.0) Law Test FiO2 (21.00-100.00) % Sodium (136-145) mEq/L Potassium (3.5-5.1) mEq/L Chloride (98-107) mEq/L Carbon Dioxide (21-32) mEq/L Anion Gap (5-15) BUN (7-18) mg/dL Creatinine (0.7-1.3) mg/dL Est Cr Clr Drug Dosing mL/min Estimated GFR (MDRD) (>60) mL/min BUN/Creatinine Ratio (14-18) Glucose (80-115) mg/dL POC Glucose (80-115) mg/dL Lactic Acid (0.4-2.0) mmol/L Calcium (8.5-10.1) mg/dL Magnesium (1.8-2.4) mg/dl Ferritin (26-388) ng/ml Total Bilirubin (0.2-1.0) mg/dL AST (15-37) U/L ALT (16-63) U/L Alkaline Phosphatase (46-116) U/L Lactate Dehydrogenase (85-227) U/L Troponin I (0.00-0.056) ng/mL C-Reactive Protein (<1.0) mg/dL NT-Pro-B Natriuret Pep 115 (0-125) pg/mL Total Protein (6.4-8.2) g/dl Albumin (3.4-5.0) g/dl Globulin gm/dL Albumin/Globulin Ratio (1-2) Urine Color (Yellow) Urine Appearance (Clear) Urine pH (5.0-8.0) Ur Specific [place] (1.005-1.030) Urine Protein (Negative) Urine Glucose (UA) (Negative) Urine Ketones (Negative) Urine Occult Blood (Negative) Urine Nitrite (Negative) Urine Bilirubin (Negative) Urine Urobilinogen (0.2-1.0) Ur Leukocyte Esterase (Negative) Urine RBC (0-5) /hpf Urine WBC (0-5) /hpf Ur Squamous Epith Cells (0-5) /hpf Urine Bacteria (FEW) /hpf Urine Mucus (FEW) /hpf Ketones <0.01 (0.0-0.3) mM SARS Virus RNA (PCR) (NEGATIVE) 02/22/20 02/22/20 02/22/20 Range/Units 20:58 21:45 22:24 WBC (4.23-9.07) K/mm3 RBC (4.63-6.08) M/mm3 Hgb (13.7-17.5) gm/dl Hct (40.1-51.0) % MCV (79.0-92.2) fl MCH (25.7-32.2) pg MCHC (32.2-35.5) g/dl RDW Std Deviation (35.1-43.9) fL Plt Count (163-337) K/mm3 MPV (9.4-12.3) fl Neutrophils % (Manual) (40-60) % Band Neutrophils % (0-10) % Lymphocytes % (Manual) (20-40) % Atypical Lymphs % % Monocytes % (Manual) (2-10) % Eosinophils % (Manual) (0.8-7.0) % Basophils % (Manual) (0.2-1.2) Platelet Estimate RBC Morph Comment ESR (0-15) mm/hr PT (9.7-12.0) SECONDS INR APTT (22-31) SECONDS D-Dimer, Quantitative (0.19-0.50) mg/L ABG pH 7.45 (7.35-7.45) ABG pCO2 35.6 (35.0-45.0) mmHg ABG pO2 67.0 L (80.0-100.0) mmHg ABG HCO3 24.5 (22.0-26.0) meq/L ABG O2 Saturation 92.7 L (96.0-97.0) % ABG Base Excess 1.5 (-2-2.0) Law Test Positive FiO2 0.00 L (21.00-100.00) % Sodium (136-145) mEq/L Potassium (3.5-5.1) mEq/L Chloride (98-107) mEq/L Carbon Dioxide (21-32) mEq/L Anion Gap (5-15) BUN (7-18) mg/dL Creatinine (0.7-1.3) mg/dL Est Cr Clr Drug Dosing mL/min Estimated GFR (MDRD) (>60) mL/min BUN/Creatinine Ratio (14-18) Glucose (80-115) mg/dL POC Glucose 117 H (80-115) mg/dL Lactic Acid (0.4-2.0) mmol/L Calcium (8.5-10.1) mg/dL Magnesium (1.8-2.4) mg/dl Ferritin (26-388) ng/ml Total Bilirubin (0.2-1.0) mg/dL AST (15-37) U/L ALT (16-63) U/L Alkaline Phosphatase (46-116) U/L Lactate Dehydrogenase (85-227) U/L Troponin I (0.00-0.056) ng/mL C-Reactive Protein (<1.0) mg/dL NT-Pro-B Natriuret Pep (0-125) pg/mL Total Protein (6.4-8.2) g/dl Albumin (3.4-5.0) g/dl Globulin gm/dL Albumin/Globulin Ratio (1-2) Urine Color (Yellow) Urine Appearance (Clear) Urine pH (5.0-8.0) Ur Specific [place] (1.005-1.030) Urine Protein (Negative) Urine Glucose (UA) (Negative) Urine Ketones (Negative) Urine Occult Blood (Negative) Urine Nitrite (Negative) Urine Bilirubin (Negative) Urine Urobilinogen (0.2-1.0) Ur Leukocyte Esterase (Negative) Urine RBC (0-5) /hpf Urine WBC (0-5) /hpf Ur Squamous Epith Cells (0-5) /hpf Urine Bacteria (FEW) /hpf Urine Mucus (FEW) /hpf Ketones (0.0-0.3) mM SARS Virus RNA (PCR) Positive H (NEGATIVE) Meds: Medications Generic Name Dose Route Start Last Admin Trade Name Freq PRN Reason Stop Dose Admin Sodium Chloride 1,000 mls @ 150 mls/hr 02/22/20 20:45 02/22/20 20:56 Normal Saline IV 150 mls/hr ASDIRECTED ED Administration Ceftriaxone Sodium 2 gm/ 100 mls @ 200 mls/hr 02/22/20 22:00 02/22/20 22:13 Sodium Chloride IV 200 mls/hr Q24H ED Administration Discontinued Medications Generic Name Dose Route Start Last Admin Trade Name Freq PRN Reason Stop Dose Admin Acetaminophen 975 mg 02/22/20 20:32 02/22/20 20:57 Tylenol PO 02/22/20 20:33 975 mg ONETIME ONE Administration Azithromycin 500 mg/ Sodium 250 mls @ 250 mls/hr 02/22/20 21:47 02/22/20 22:14 Chloride IV 02/22/20 22:46 Not Given ONETIME ONE Ibuprofen 600 mg 02/22/20 23:24 Motrin PO 02/22/20 23:25 ONETIME ONE - Radiology Interpretation Free Text/Narrative:: 64-year-old male presents to the ED with acute onset of fever, chills and rigors darting about 1600 hrs. today. Was not feeling well yesterday primarily with low back pain but he had some symptoms to warrant COVID testing and his primary care physician did send off a COVID test through the [facility] system. Leave this is sent to [facility] for analysis and is unknown when results may come back. Patient has a dry cough. He is markedly febrile with a temperature greater than 103.6 at this time. He has no dysuria urgency or frequency and no abdominal pain. Will have a repeat COVID test. He will have the Covid work-up as well as septic work-up. 2 view chest x-ray to be obtained. ECG as well. IV will be normal saline at 150 mils per hour. Patient has a history of type 2 diabetes and controlled with metformin. He has not checked his sugars today. He has lost most of his appetite today. 1 dose of prednisone this morning for his low back pain prescribed by his primary care physician yesterday. He has not taken any Tylenol or Motrin. Given Tylenol 9 7 5 mg p.o. in the ED. O2 sats are low at 90% in the ED. Placed on oxygen 2 L/min by nasal cannula. - Re-Assessments/Exams Free Text/Narrative Re-Assessment/Exam: 02/22/20 21:46 2 view chest x-ray reveals a right middle lobar pneumonia. Is in the anterior segment. Visible on the perihilar view anteriorly on the lateral chest x-ray. No cardiomegaly. No pleural effusions. Mild hyperinflated lung irvin. Will be started on Rocephin 2 g IV followed by azithromycin 500 mg IV. 02/22/20 21:48 Blood cell count is elevated at 12.21. Differential pending. Hemoglobin mildly elevated at 16.3 with hematocrit of 49.3 suggesting mild hemoconcentration. Platelet count is 225,000. Urinalysis shows trace of occult blood but no other signs of infection 02/22/20 22:00 PT is 10.9 with an INR of 1.0. PTT is 27 with a d-dimer of 0.41. ABGs reveal a pH of 7.45. PCO2 is 35.6 with a PO2 of 67.0. Oxygen saturation is 92.7% on room air. Sodium slightly low at 133 with a potassium of 4.0. Chloride is 97 with a bicarb of 25. Anion gap is 15.0. BUN is 21 with a creatinine of 1.4. GFR is 51. Glucose 127 bedside it was 117. Lactic acid 1.6. Calcium is 9.8. Magnesium is low at 1.5. Serum ferritin is elevated at 653. Total bilirubin is 0.8 with an AST of 26 and an ALT of 65. Alk phos stays normal at 64. LDH is normal at 108. Troponin I was less than 0.017. C- reactive protein elevated at 5.9. BNP was 115. Total protein 7.8 with an albumin fraction of 3.6. Ketones were negative or less than 0.01. Patient is COVID positive. I have discussed the results with the patient and he prefers to be transferred to [facility] as this is where he receives his usual care. Discussed the case with Dr. Eugene arguello patient be transferred to a higher level of care. Patient is seen by the [facility] system and will therefore be transferred to [facility] in [place]. Patient's risk factors are about of obesity. Hypertension. Type 2 diabetes and chronic hypothyroidism. 02/22/2020: 22:12: Disussed the case with 1 call nurse at [facility] in [place] and Dr. Dobbins [facility] and she is excepted care of this patient. Currently waiting for our [facility] ambulance to return from [place] from a transport to provide transport back to [place] for this patient. 02/22/20 23:27 Ambulance is now back from [facility] to provide transport to [facility] in [facility]. Departure - Departure Time of Disposition: 23:29 Disposition: DC/[facility]fer to [facility] 02 Condition: Serious Clinical Impression: Fever and chills, Neutrophilic leukocytosis, Lab test positive for detection of COVID-19 virus, Obesity (BMI 30-39.9), Hypoxia, Hypothyroidism Right middle lobe pneumonia Qualifiers: Pneumonia type: due to unspecified organism Qualified Code(s): J18.9 - Pneumonia, unspecified organism Type 2 diabetes mellitus Qualifiers: Diabetes mellitus terminal manager insulin use: without usp use Diabetes mellitus complication status: without complication Qualified Code(s): E11.9 - Type 2 diabetes mellitus without complications - Discharge Information *PRESCRIPTION DRUG MONITORING PROGRAM REVIEWED*: Not Applicable *COPY OF PRESCRIPTION DRUG MONITORING REPORT IN PATIENT NICKY: Not Applicable Instructions: Type 2 Diabetes Mellitus, Diagnosis, Adult, COVID-19, Hypoxemia, Upper Respiratory Infection, Adult, [id number] Referrals: Jesus Saini MD [Primary Care Provider] - Forms: ED Department Discharge Additional Instructions: Patient transferred to [facility] due to COVID-19 positive testing. Patient clinically has pneumonia right middle lobe on chest x-ray. Acute onset of fever and chills with Rigor's earlier this afternoon. Patient has multiple comorbidities i.e. obesity. Hypertension. Hypoxemia at rest. Hypothyroidism. Type 2 diabetes. Sepsis Event Note (ED) - Evaluation Sepsis Screening Result: Possible Sepsis Risk - Focused Exam Vital Signs: Vital Signs Temp Temp Pulse Resp BP Pulse Ox 02/22/20 20:57 39.1 C H 02/22/20 20:12 39.1 C H 102 H 19 150/84 H 90 L - My Orders Last 24 Hours: My Active Orders 02/22/20 20:34 Chest 2V [CR] Stat 02/22/20 20:35 Blood Glucose Check, Bedside [RC] ONETIME Oxygen Therapy [RC] ASDIRECTED 02/22/20 20:36 Blood Culture x2 Reflex Set [OM.PC] Stat 02/22/20 20:45 Sodium Chloride 0.9% [Normal Saline] 1,000 ml IV ASDIRECTED 02/22/20 20:52 EKG Documentation Completion [RC] STAT 02/22/20 21:08 CULTURE BLOOD [BC] Stat 02/22/20 21:18 CULTURE BLOOD [BC] Stat 02/22/20 22:00 cefTRIAXone [Rocephin] 2 gm Sodium Chloride 0.9% [Normal Saline] 100 ml IV Q24H - Assessment/Plan Last 24 Hours: My Active Orders 02/22/20 20:34 Chest 2V [CR] Stat 02/22/20 20:35 Blood Glucose Check, Bedside [RC] ONETIME Oxygen Therapy [RC] ASDIRECTED 02/22/20 20:36 Blood Culture x2 Reflex Set [OM.PC] Stat 02/22/20 20:45 Sodium Chloride 0.9% [Normal Saline] 1,000 ml IV ASDIRECTED 02/22/20 20:52 EKG Documentation Completion [RC] STAT 02/22/20 21:08 CULTURE BLOOD [BC] Stat 02/22/20 21:18 CULTURE BLOOD [BC] Stat 02/22/20 22:00 cefTRIAXone [Rocephin] 2 gm Sodium Chloride 0.9% [Normal Saline] 100 ml IV Q24H
[2020-02-22] MEDS ORDERED: Acetaminophen 325 MG Tab PO ONE (20:32)
[2020-02-22] MEDS ORDERED: Sodium Chloride 0.9% 1,000 ML IV SCH (20:45)
[2020-02-22] MEDS ORDERED: Azithromycin 500 MG in Sodium Chloride 0.9% 250 ML IV ONE (21:47)
[2020-02-22] MEDS ORDERED: cefTRIAXone 2 GM in Sodium Chloride 0.9% 100 ML IV SCH (22:00)
[2020-02-22] MEDS ORDERED: Ibuprofen 600 MG Tab PO ONE (23:24)
[2020-02-22 23:49] VITALS: BP 144/82; PULSE 82
--- NOTE | 2020-02-23 11:29 | CR ---
Chest: 2 views of the chest were obtained. Comparison: No prior chest imaging is available. Heart size and mediastinum are within normal limits. Lungs are clear with no acute parenchymal change. Bony structures shows minimal degenerative change within the spine with disc space narrowing and endplate spurring. This is noted within the mid and lower thoracic spine. Impression: 1. Findings as noted above. 2. Nothing acute is suspected. Diagnostic code #2 This report was dictated in MDT
== END 2020-02-22 23:35 ==
LOC: JD.ED 20:00
DX: U07.1 COVID-19 (principal); J12.89 Other viral pneumonia; E11.9 Type 2 diabetes mellitus without complications; D72.828 Other elevated white blood cell count; R09.02 Hypoxemia; E03.9 Hypothyroidism, unspecified; E78.00 Pure hypercholesterolemia, unspecified; I10 Essential (primary) hypertension; K21.9 Gastro-esophageal reflux disease without esophagitis; R19.7 Diarrhea, unspecified; M10.9 Gout, unspecified; E66.9 Obesity, unspecified; Z68.39 Body mass index [BMI] 39.0-39.9, adult; R00.0 Tachycardia, unspecified; Z79.82 Long term (current) use of aspirin; Z79.84 Long term (current) use of oral hypoglycemic drugs; Z79.899 Other long term (current) drug therapy
CPT/HCPCS: 36415; 36600; 71046; 80053; 81001; 82009; 82728; 82803; 82962; 83605; 83615; 83735; 83880; 84484; 85007; 85027; 85379; 85610; 85652; 85730; 86140; 87040; 87635; 93005; 96361; 96365; 99285; A9270; J0696; J7030; J7050; 93010; U0002